=== PATIENT | female | born 1980 | race Caucasian/White ===

== ENCOUNTER → 2017-06-22 | Outpatient (CLI) | payer BC ==
--- NOTE | 2017-06-22 16:01 | CT ---
EXAMINATION TYPE: CT abdomen pelvis wo con DATE OF EXAM: 06/22/2017 COMPARISON: NONE HISTORY: Pain and occasional bulging around the navel CT DLP: 635 mGycm Automated exposure control for dose reduction was used. TECHNIQUE: Helical acquisition of images was performed from the lung bases through the pelvis. FINDINGS: LUNG BASES: No significant abnormality is appreciated. LIVER/GB: No significant abnormality is appreciated. PANCREAS: No significant abnormality is seen. SPLEEN: No significant abnormality is seen. ADRENALS: No significant abnormality is seen. KIDNEYS: There are approximately 10 calcifications in the left and 4 on the right with no evidence of hydronephrosis. All measure less than 5 mm. Hypodense lesion involving the right kidney is too small to characterize by noncontrast technique.. URINARY BLADDER: No significant abnormality is seen. ADENOPATHY: None visualized. OSSEOUS STRUCTURES: No significant abnormality is seen. BOWEL: Bowel gas pattern is nonspecific with suggestion of sigmoid diverticulosis. Appendix is not v isualized with certainty. OTHER: No evidence of periumbilical hernia. IMPRESSION: 1. Nonobstructing bilateral nephrolithiasis. 2. No diagnostic evidence of periumbilical hernia. 3. Indeterminate right renal lesions due to noncontrast technique.
== END | disposition home or self-care (01) ==
LOC: RADCTMAIN 15:24
PROVIDERS: ATTEND Surgery
DX: N20.0 Calculus of kidney (principal)
CPT/HCPCS: 74176

== ENCOUNTER 2017-09-16 08:35 | Day surgery (SDC) | payer SELFPAY ==
[2017-09-15 09:15] VITALS: BMI 18.4
[~2017-09-16 08:35] MED LIST: DEXAMETHASONE SOD PHOSPHATE 10 MG/ML 1 ML VIAL IV ONE; HEPARIN SODIUM,PORCINE 5,000 UNIT/ML 1 ML VIAL SQ ONE; LIDOCAINE 1% 20 ML VIAL (10MG/ML) FOR IV START INTRADERMA PRN; MIDAZOLAM 2 MG/2 ML VIAL IV PRN; ONDANSETRON 4 MG/2 ML VIAL IVP ONE; SCOPOLAMINE 1.5MG/72HR PATCH TRANSDERM ONE; ceFAZolin IN SWFI 2 GM/20 ML SYRINGE IVP ONE
[2017-09-16] MEDS: LACTATED RINGERS 1,000 ML IV SCH ×3 (09:15→15:15)
--- NOTE | 2017-09-16 10:00 | P.GSHP ---
History of Present Illness H&P Date: 09/16/17 Chief Complaint: Umbilical hernia This is a 37-year-old female who presents today for laparoscopic robotic system repair of umbilical hernia. Patient developed a tender mass at her umbilicus. Past Medical History Past Medical History: No Reported History History of Any Multi-Drug Resistant Organisms: None Reported Past Surgical History: Section Past Anesthesia/Blood Transfusion Reactions: No Reported Reaction Smoking Status: Current every day smoker - Past Family History Father Family Medical History: Cancer Additional Family Medical History / Comment(s): LUNG CANCER Medications and Allergies Home Medications Medication Instructions Recorded Confirmed Type ALPRAZolam [Xanax] 1 mg PO BID PRN 09/15/17 09/16/17 History Citalopram Hydrobromide [CeleXA] 40 mg PO HS 09/15/17 09/16/17 History Hydrocodone/Acetaminophen 1 tab PO TID 09/15/17 09/16/17 History [Hydrocodone/Acetaminophen 7.5-300] Ibuprofen [Motrin] 800 mg PO Q6H PRN 09/15/17 09/16/17 History Mv-Min/Vit C/Glut/Lysine/Hc124 1 each PO DAILY 09/15/17 09/16/17 History [Airborne Tablet Chewable] Allergies Allergy/AdvReac Type Severity Reaction Status Date / Time adhesive tape AdvReac Itching Verified 09/16/17 08:53 Surgical - Exam Vital Signs Temp Pulse Resp BP Pulse Ox 97.9 F 74 16 113/77 99 09/16/17 08:58 09/16/17 08:58 09/16/17 08:58 09/16/17 08:58 09/16/17 08:58 - General well developed, no distress - Eyes PERRL - ENT normal pinna - Neck no masses - Respiratory normal expansion - Cardiovascular Rhythm: regular - Abdomen Abdomen: soft, non tender Hernia: umbilical (1 cm reducible umbilical hernia) Assessment and Plan Assessment: Local hernia. We'll perform laparoscopic robotic-assisted repair.
[2017-09-16] MEDS ORDERED: NEOSTIGMINE 1 MG/ML 10 ML VIAL ONE (10:17)
[2017-09-16] MEDS ORDERED: PROPOFOL 10 MG/ML 20 ML VIAL IV ONE (10:17)
[2017-09-16] MEDS ORDERED: SUCCINYLCHOLINE CHLORIDE 100 MG/5 ML SYR IV ONE (10:17)
[2017-09-16] MEDS ORDERED: HYDROmorphone (PF) 1 MG/ML ONE (10:17)
[2017-09-16] MEDS ORDERED: ePHEDrine SULFATE/0.9% NACL/PF 50 MG/5 ML SYRINGE IV ONE (10:17)
[2017-09-16] MEDS ORDERED: GLYCOPYRROLATE 0.2 MG/ML 2 ML VIAL ONE (10:17)
[2017-09-16] MEDS ORDERED: ROCURONIUM BROMIDE 10 MG/ML 10 ML VIAL IV ONE (10:17)
[2017-09-16] MEDS ORDERED: MIDAZOLAM 2 MG/2 ML VIAL ONE (10:17)
[2017-09-16] MEDS ORDERED: fentaNYL (PF) 50 MCG/ML 2 ML AMP ONE (10:17)
[2017-09-16] MEDS ORDERED: LIDOCAINE 1% INJ 10MG/ML (20 ML MDV) ONE (10:17)
[2017-09-16] MEDS ORDERED: BUPIVACAINE-EPI 0.5%-1:200,000 10 ML VIAL SQ ONE (10:47)
[2017-09-16 12:10] VITALS: TEMP 99.3
[2017-09-16] MEDS: HYDROmorphone 0.5 MG/0.5 ML SYRINGE IVP PRN ×2 (12:18→12:30)
[2017-09-16 12:20] VITALS: RESP 16
[2017-09-16] MEDS ORDERED: HYDROcodone/APAP 5-325MG 1 EACH TAB PO ONE (13:20)
[2017-09-16] MEDS ORDERED: IBUPROFEN 200 MG TAB PO ONE (14:23)
[2017-09-16 14:29] VITALS: PULSE 71
[2017-09-16 15:14] VITALS: BP 148/78
--- NOTE | 2017-09-16 17:24 | P.OP ---
Date of Procedure: 09/16/17 Preoperative Diagnosis: Umbilical hernia Postoperative Diagnosis: Umbilical hernia Procedure(s) Performed: Laparoscopic robotic-assisted repair of umbilical hernia Anesthesia: RUDOLPH Surgeon: Jer Willoughby Estimated Blood Loss (ml): 5 Pathology: none sent Condition: stable Disposition: PACU Description of Procedure: The patient's placed on the operating table in the supine position. She received general anesthesia. Her abdomen was prepped and draped usual fashion. Using a 5 mm optical trocar under direct visualization the peritoneal cavity is entered in the left upper quadrant. Next using a another 8 mm robotic trocar in the left lower quadrant. Cavity was entered and then a 12 mm right buttock trochars placed in the left lateral position and the original 5 mm trocar was exchanged for a 8 mm robotic trocar. The patient was then docked to the robot. Next using a fenestrated bipolar graspers and hook cautery the fascia of the umbilical hernia was exposed. The fascia was then repaired using oh the lock suture. Next the ventral light ST mesh was placed into the pleural cavity and this was secured with 20 the lock suture over top of the hernia repair. Next the patient was undocked from the robot. The needles were retrieved. The skin at the trocar sites were closed using 3-0 Monocryl suture. Dermabond dressings was applied. Patient was sent to recovery room stable condition.
== END 2017-09-16 15:26 | disposition home or self-care (01) ==
LOC: OR 08:35
PROVIDERS: ATTEND Surgery
DX: K42.9 Umbilical hernia without obstruction or gangrene (principal); F39 Unspecified mood [affective] disorder; F17.200 Nicotine dependence, unspecified, uncomplicated; Z91.048 Other nonmedicinal substance allergy status; Z79.891 Long term (current) use of opiate analgesic; Z79.899 Other long term (current) drug therapy; Z80.1 Family history of malignant neoplasm of trachea, bronchus and lung
CPT/HCPCS: 49652; 84703; J2250; J1644; J1100; J2710; J2405; J2001; J3010; J1170 ×2; J0330; J2704; 81025